=== PATIENT | female | born 1985 | race Caucasian/White ===

== ENCOUNTER 2024-10-04 17:07 | Day surgery (SDC) | payer BC ==
[2024-10-04] MEDS: Ondansetron 4 MG/2 ML SDV IVPUSH ONE (17:59)
[2024-10-04] MEDS: HYDROmorphone 1 MG/ML Syringe IVPUSH ONE (18:00)
[2024-10-04] MEDS: Piperacillin/Tazobactam 3.375 GM in Sodium Chloride 0.9% 50 ML IV ONE (18:00)
[2024-10-04] MEDS: Sodium Chloride 0.9% 1,000 ML IV ONE (18:00)
[2024-10-04] MEDS ORDERED: fentaNYL 250 MCG/5 ML SDV ONE (18:24)
[2024-10-04] MEDS ORDERED: Propofol 200 MG/20 ML SDV ONE (18:24)
[2024-10-04] MEDS ORDERED: Dexamethasone 4 MG/ML SDV ONE (18:24)
[2024-10-04] MEDS ORDERED: Neostigmine Methylsulfate 10 MG/10 ML MDV ONE (18:24)
[2024-10-04] MEDS ORDERED: Succinylcholine 200 MG/10 ML MDV ONE (18:24)
[2024-10-04] MEDS ORDERED: Rocuronium 50 MG/5 ML Vial ONE (18:24)
[2024-10-04] MEDS ORDERED: Glycopyrrolate 0.2 MG/ML 5 ML MDV ONE (18:24)
[2024-10-04] MEDS ORDERED: Ondansetron 4 MG/2 ML SDV ONE (18:24)
[2024-10-04] MEDS: Bupivacaine 0.25%/EPINEPHrine 1:200,000 30 ML SDV ONE (19:28)
[2024-10-04] MEDS ORDERED: Lactated Ringers 1,000 ML ONE (19:54)
[2024-10-04] MEDS ORDERED: Ketorolac 30 MG/ML SDV ONE (19:54)
[2024-10-04] MEDS ORDERED: Sugammadex Sodium 200 MG/2 ML VIAL IV ONE (19:54)
[2024-10-04] MEDS ORDERED: oxyCODONE 5 MG Tab PO ONE (20:41)
== END 2024-10-04 22:25 | disposition home or self-care (01) ==
LOC: JP.ED 17:07 → JP.SDS 19:45
PROVIDERS: ATTEND Surgery
DX: K35.33 Acute appendicitis with perforation, localized peritonitis, and gangrene, with abscess (principal)
CPT/HCPCS: 00840; 44970; 96365; 96375; 99284; J0330; J1100; J1171; J1596; J1885; J2405; J2543; J2704; J2710; J3010; J7030; J7120; 88304; 88313; 88341; 88342; 88360; J3490